=== PATIENT | male | born 1955 | race Caucasian/White ===

== ENCOUNTER 2024-03-17 04:07 | Observation (INO) | payer OTHER, SELFPAY ==
[2024-03-17] VITALS (7 sets, daily range): BP systolic 104–140; BP diastolic 48–110; PULSE 64–79; RESP 11–20; TEMP 36.4–36.8; O2SAT 95–100; BMI 15.2
--- NOTE | 2024-03-17 04:16 | ECG_ITS ---
SEE SCANNED COPY FOR CONFIRMED REPORT MTDD
[2024-03-17] MEDS: MORPHINE SULFATE (*CRX) 4 MG/ML INJ IV PUSH ×2 (04:54→09:08)
[2024-03-17] MEDS: ONDANSETRON INJ 4 MG/2 ML VIAL IV PUSH ×3 (04:54→09:08)
[2024-03-17] MEDS: SODIUM CHLORIDE 0.9% IV 1,000 ML 999 ML IV CONT (05:36)
--- NOTE | 2024-03-17 05:56 | ED.GENADULT ---
HPI - General Adult General Chief complaint: Unspecified Stated complaint: AMS Time Seen by Provider: 03/17/24 04:48 History of Present Illness HPI narrative: Patient is a 68-year-old male who presents the emergency department this evening complaining of pain all over. Patient is DNR/DNI due to metastatic renal cell carcinoma. Patient states that he was told 5 weeks ago that he only has 2 weeks left lip and was placed on hospice. Patient states that recently his pain medications were decreased and currently his home pain regimen is not controlling his pain. Patient also has a known left prosthetic hip infection which has failed antibiotic treatment and patient's IV antibiotics were stopped approximately 5 weeks ago. Patient commissary representative/family member who is present with the patient states that the patient was on hospice but was recently taken off hospice in order for him to be admitted into an independent living facility. They are currently trying to get him back into hospice. Patient and it family member do not want any further treatment, only to make the patient comfortable and control his pain. Related Data Allergies Allergy/AdvReac Type Severity Reaction Status Date / Time No Known Allergies Allergy Verified 03/17/24 04:18 Review of Systems Review of Systems: All systems are reviewed and are negative unless stated otherwise in the HPI. Exam Narrative: General: Alert, awake, afebrile, frail and cachectic. HEENT: PERRL, no rhinorrhea, no post nasal drip, oropharynx clear. Cardiovascular: Regular rate and rhythm, no murmurs, rubs or gallops, no peripheral edema. Respiratory: Clear to auscultation bilaterally, no tachypnea, no wheezing, no respiratory distress. Abdomen: Soft, nontender, nondistended, no rebound, no guarding, no peritoneal signs. Musculoskeletal: Small lesion along the anterior left hip draining pustular drainage. SKin: No rash or evidence of skin infection. Neurological: Alert and oriented to person, place, and time. Follows all commands. No focal deficits appreciated at this time. Course Vital Signs Vital signs: Vital Signs Temperature 98.2 F 03/17/24 04:11 Pulse Rate 78 03/17/24 04:11 Respiratory Rate 20 03/17/24 04:11 Blood Pressure 140/68 03/17/24 04:11 Pulse Oximetry 100 03/17/24 04:11 Oxygen Delivery Room Air 03/17/24 04:11 Temperature 98.2 F 03/17/24 04:11 Pulse Rate 64 03/17/24 06:16 Respiratory Rate 11 L 03/17/24 06:16 Blood Pressure 104/48 L 03/17/24 06:16 Pulse Oximetry 100 03/17/24 06:16 Oxygen Delivery Room Air 03/17/24 04:11 Medical Decision Making MDM Narrative Medical decision making narrative: The patient was evaluated by myself in the emergency department. History is obtained from patient who is an independent historian and physical exam was performed. External medical records were reviewed at this time. IV was established and pertinent tests were ordered. Patient was administered a 1 L IV fluid bolus with normal saline, 4 mg of IV morphine for pain and 4 mg of IV Zofran for nausea. Comorbidities impacting this visit include metastatic cancer and infected left prosthetic hip unresponsive to treatment. I have evaluated and discussed social determinants of health with the patient that could potentially impact subsequent diagnosis and treatment plans. On repeat assessment of the patient, reevaluation revealed that the patient is doing well and is in no acute distress. Patient symptoms have improved since he arrived to our emergency department. Repeat vital signs were all reviewed and noted to be stable. Differential diagnosis and treatment plan were discussed with the patient at bedside. Patient agrees with discussion and after shared medical decision making agrees with admission. All questions were answered to the patient's satisfaction. Patient will be admitted to our general medical floor under the care of Dr. Ghosh. Jordon
--- NOTE | 2024-03-17 07:17 | PM.IMHP ---
H&P: HPI History of Present Illness Date/Time: 03/17/24 07:17 Chief Complaint: pain all over, AMS Narrative: ED notes reviewed. Patient is a 68-year-old male admitted from emergency department for complaining of pain all over.? Patient is DNR/DNI due to metastatic renal cell carcinoma.? Patient states that he was placed on hospice about 5 weeks ago.? Patient states that recently his pain medications were decreased and currently his home pain regimen is not controlling his pain.? Patient also has a known left prosthetic hip infection which has failed antibiotic treatment and patient's IV antibiotics were stopped approximately 5 weeks ago.? In ED- Patient family reported that pt was recently taken off hospice in order for him to be admitted into an independent living facility.? They are currently trying to get him back into hospice.? Pt is DNR and doesnot want any escalation of care except hospice placement and pain management. 03/17- seen and examined. he just received morphine IV and zofran- so was comfortable. Voices no acute complains Review of Systems Cardiovascular: Cardiovascular: Denies chest pain and Denies diaphoresis Respiratory: Respiratory: Denies chest congestion and Denies cough Gastrointestinal: Gastrointestinal: Denies abdominal pain and Denies melena Genitourinary: Genitourinary: Denies hematuria Musculoskeletal: Musculoskeletal: Reports arthralgias and Reports stiffness Comments: pain all over Neurologic: Denies Abnormal speech present Psychiatric: Psychiatric: Denies anxiety [facility] Social History Social History Alcohol intake: unknown Substance use: unknown Substance use type: does not use Do You Feel Safe in your Home?: Yes Lack of Transportation: No Lack of Food: Never True Current Housing: I Have Housing Concerned About Future Housing: No Difficulty Paying Gas/Electric Bills: No Difficulty Paying for Meds: No Currently Unemployed: No Education: Don't Know Difficulty w/ Childcare or Family Care: No Spiritual care concerns: No Meds Home Medications and Allergies Home Medications Medication Instructions Recorded Confirmed Type ondansetron 4 mg disintegrating 4 mg PO Q4H 03/17/24 03/17/24 History tablet oxycodone 10 mg tablet 10 mg PO Q4H 03/17/24 03/17/24 History Allergies Allergy/AdvReac Type Severity Reaction Status Date / Time No Known Allergies Allergy Verified 03/17/24 04:18 Vital Signs Vital Signs - 24 hr 03/17/24 04:11 03/17/24 04:34 03/17/24 04:18 Temperature 98.2 F Pulse Rate 78 78 79 Respiratory Rate 20 13 Blood Pressure 140/68 138/64 Pulse Oximetry 100 100 Oxygen Delivery Room Air 03/17/24 05:16 03/17/24 05:58 03/17/24 06:16 Temperature Pulse Rate 76 67 64 Respiratory Rate 18 17 11 L Blood Pressure 126/110 H 114/58 L 104/48 L Pulse Oximetry 100 100 Oxygen Delivery Exam Const: General: comfortable Other: resting in bed Resp: Effort & Inspection: normal respiratory effort Auscultation: clear to auscultation bilaterally Cardio: Rate: regular rate Rhythm: regular rhythm Skin: Other: pale Extrem: General: normal to inspection Psych: Affect: normal affect Assessment and Plan Assessment and plan (1) Admission for hospice care: Code(s): Z51.5 - Encounter for palliative care Status: Acute (2) Adult failure to thrive: Code(s): R62.7 - Adult failure to thrive Status: Acute (3) Renal cell carcinoma: Code(s): C64.9 - Malignant neoplasm of unspecified kidney, except renal pelvis Status: Acute Plan Admitted to hospice care -consult in place - zofran/Morphine prn- awaiting hospice recommendations Quality VTE Prophylaxis VTE prophylaxis: mechanical ordered
--- NOTE | 2024-03-17 07:41 | ADMGEN ---
This patient, John Moya, was admitted to 2 Medical Room 244-. Patient/family oriented to hospital policies and general routines including ID bracelet, bed and alarms, visiting hours, pain management, procedures, bathroom and other care routines, personal items, smoking policy, room service/diet, and visiting hours. Information on how to activate the Rapid Response Team has been discussed. Patient/Family are encouraged to report perceived risks to care and to ask questions if they do not understand what they are told or what they should do.
[2024-03-17] MEDS: SODIUM CHLORIDE 0.9% IV 1,000 ML 100 ML IV CONT (09:11)
--- NOTE | 2024-03-17 11:13 | PC.NURSE ---
Per Dr. Knight with [facility], patient to be readmitted for hospice inpatient.
--- NOTE | 2024-03-18 14:47 | PM.DS ---
DS: Admitting Diagnosis Discharge Date 03/17/24 Admitting Diagnosis weakness, pain DS: Discharge Diagnosis Discharge Diagnosis (1) Admission for hospice care: Code(s): Z51.5 - Encounter for palliative care Status: Acute (2) Adult failure to thrive: Code(s): R62.7 - Adult failure to thrive Status: Acute (3) Renal cell carcinoma: Code(s): C64.9 - Malignant neoplasm of unspecified kidney, except renal pelvis Status: Acute Plan Final dx: renal cell cancer Admitted to hospice care -consult in place - zofran/Morphine prn- awaiting hospice recommendations DS: Summary Hospital Course Hospital Course: admitted to hospice care for renal cell cancer Status at Discharge Functional status at discharge: bed bound Overall status at discharge: patient is back to baseline Time Spent with Patient Time attestation: Total time spent providing and/or coordinating discharge services: Time spent: Less than 30 minutes Exam Const: General: comfortable Other: resting in bed Resp: Effort & Inspection: normal respiratory effort Auscultation: clear to auscultation bilaterally Cardio: Rate: regular rate Rhythm: regular rhythm Skin: Other: pale Neuro: Speech: No Abnormal speech present Extrem: General: normal to inspection Psych: Affect: normal affect DS: Data Data Completed and Pending Completed studies during hospitalization: none Pending studies at discharge: none Additional Comments Additional comments: pt is admitted to hospice care. Discharge Plan Discharge Consulting providers: Jamia Reid Discharging Clinician: Jamia Reid Anticipated Discharge Date/Time: 03/17/24 14:51 Patient Disposition: Hospice - Medical Facility Activity: as tolerated Diet: as tolerated Stand Alone Forms: General Discharge Information Discharge Medications: Continued oxycodone 10 mg Tablet 10 mg PO Q4H ondansetron [Zofran ODT] 4 mg Tablet,Disintegrating 4 mg PO Q4H Date of admission: 03/17/24 09:47 Primary Care Provider: UNKNOWN,DOCTOR Admitting Provider: Moises Ghosh Attending physician on admission: Moises Ghosh Condition: Stable Quality VTE Prophylaxis VTE prophylaxis: mechanical ordered
== END 2024-03-17 11:16 | disposition hospice, inpatient (51) ==
LOC: ANHED 05:09 → ANH2MED 06:48
PROVIDERS: Admitting Provider Internal Medicine; Emergency Provider Emergency Medicine; Visit Provider Internal Medicine
DX: Z51.5 Encounter for palliative care (principal); G89.3 Neoplasm related pain (acute) (chronic); C64.9 Malignant neoplasm of unspecified kidney, except renal pelvis; T84.52XD Infection and inflammatory reaction due to internal left hip prosthesis, subsequent encounter; Z66 Do not resuscitate; R62.7 Adult failure to thrive; Z68.1 Body mass index [BMI] 19.9 or less, adult; Y83.8 Other surgical procedures as the cause of abnormal reaction of the patient, or of later complication, without mention of misadventure at the time of the procedure
CPT/HCPCS: 93005; 96361; 96374; 96375; 96376; 99285; G0378; J2270; J2405; J7030

== ENCOUNTER 2024-03-17 11:23 | HOS | payer OTHER, MEDICARE, SELFPAY ==
[2024-03-17 11:37] VITALS: BMI 15.2
[2024-03-17] MEDS: HYDROmorphone HCL INJ (*CRX) 1 MG/ML SYR 2 MG IV PUSH ×4 (12:09→20:07)
[2024-03-17] MEDS: dexAMETHasone SOD PHOS INJ 4 MG/ML VIAL IV PUSH ×2 (12:10→20:06)
[2024-03-17] MEDS: HYDROmorphone HCL/PF (*CRX) 50 MG in SODIUM CHLORIDE 0.9% IV 95 ML IV CONT (12:10)
--- NOTE | 2024-03-17 12:46 | PC.NURSE ---
Patient requesting NO information to be given to either of his sons, Deejay or Martin.
[2024-03-17] MEDS: PROCHLORPERAZINE EDISYLATE 10 MG/2 ML VIAL IV PUSH (17:03)
--- NOTE | 2024-03-17 17:13 | PM.IMHP ---
H&P: HPI History of Present Illness Date/Time: 03/17/24 17:13 Chief Complaint: Uncontrolled pain Narrative: 68-year-old gentleman was diagnosed with renal cell cancer while evaluating left hip and thigh pain. This was October 2022. At diagnosis he already had metastases to the left femur. He underwent radiation therapy to the right kidney followed by right nephrectomy in February of 2023. He had hip replacement surgery due to increasing pain in September 2023. He was found to have postoperative infection and had a 2nd surgery on the left hip and October 2022. He completed about 6 weeks of IV antibiotic and oral antibiotics. He was living in his own home until recently. Until is hip surgery he was ambulatory. Since diagnosis of his cancer he has lost about 50 lb. Prior to his hip surgery he was ambulating with a walker. He was continent of bowel and bladder. Appetite was decreasing. Had some nausea that has worsened over time. Recently developed some difficulty with swallowing especially chew your grew E foods. About 5 weeks prior to admission he was referred for hospice services. However because he wanted to moved to an assisted living he had 2 revoke hospice services temporarily. After moving to assisted living his physician decreased his hydromorphone dose from 20 mg every 4 hours to 10 mg every 4 hours. Unfortunately his pain escalated over the last week or so and he ended up in the emergency department due to uncontrolled pain. At admission is pain was 10/10. After bolus of hydromorphone 2 mg and 1 milligram/hour drip his pain is now at 7/10. He does have chronic dry eyes and bilateral lower lid ectropion. He cannot close his eyes completely to sleep. He has deep aching constant pain in the left hip and thigh that is worsened by activity. He denied chest pain or shortness of breath. Admitted to weight loss and nausea and poor appetite. Denied abdominal pain. Denied change in urine or stool. Denied focal weakness or numbness or headaches. Denied vision changes. He did have blurred vision when using nocturnal ointment to prevent dry eyes. Review of Systems Review of Systems: All systems reviewed & are unremarkable except as noted in HPI and below PMFSH Past Medical History Medical History (Updated 03/17/24 @ 17:40 by Davy Knight MD) History of revision of total replacement of left hip joint 10/2023 Renal cell carcinoma 10/2022 Surgical History Surgical History (Updated 03/17/24 @ 17:40 by Davy Knight MD) History of nephrectomy, right 02/2023 History of total left hip arthroplasty 09/2023 Family History Family History (Updated 03/17/24 @ 17:41 by Davy Knight MD) Mother Renal cell cancer Father Congestive heart failure Social History Social History (Updated 03/17/24 @ 17:43 by Davy Knight MD) Social History: Single. Lived alone in his own home until 02/2024 move to assisted living in [place], [place]. Former social drinker. Quit smoking cigarettes in 1999. Retired from [employer]. Smoking status: Former smoker Tobacco type: cigarettes Alcohol intake: former Substance use: never Do You Feel Safe in your Home?: Yes Lack of Transportation: No Lack of Food: Never True Current Housing: I Have Housing Concerned About Future Housing: No Difficulty Paying Gas/Electric Bills: No Difficulty Paying for Meds: No Currently Unemployed: No Education: Don't Know Difficulty w/ Childcare or Family Care: No Living arrangements: assisted living Occupation/Education: retired Spiritual care concerns: No Meds Home Medications and Allergies Home Medications Medication Instructions Recorded Confirmed Type ondansetron 4 mg disintegrating 4 mg PO Q4H 03/17/24 03/17/24 History tablet oxycodone 10 mg tablet 10 mg PO Q4H 03/17/24 03/17/24 History Allergies Allergy/AdvReac Type Severity Reaction Status Date / Time No Known Allergies Allerg
[2024-03-17] MEDS: ARTIFICIAL TEARS OPHTH SOLN 15 ML BOTTLE EACH EYE (20:13)
[2024-03-17] MEDS: LORazepam INJ (*CRX) 2 MG/ML VIAL 1 MG IV PUSH (20:19)
[2024-03-18] MEDS: HYDROmorphone HCL INJ (*CRX) 1 MG/ML SYR 2 MG IV PUSH ×3 (07:58→20:08)
[2024-03-18] MEDS: dexAMETHasone SOD PHOS INJ 4 MG/ML VIAL IV PUSH ×2 (09:17→20:08)
--- NOTE | 2024-03-18 12:23 | PM.IMPN ---
Progress Note: A&P Assessment and Plan (1) Palliative care encounter: Code(s): Z51.5 - Encounter for palliative care Status: Acute Assessment and Plan: Meet inpatient hospice criteria due to requiring continuous IV hydromorphone for control of pain. 03/17/2024 discussed with Mr. Moya and he is in agreement with a plan to utilize IV medication to achieve adequate analgesia then transition to oral medications so that he may return to the assisted living facility. 03/17/2024 initial regimen of hydromorphone 1 milligram/hour continuously and 2 mg every 2 hours as needed as well as dexamethasone 4 mg IV every 12 hours. PRN palliative medications and eye patches for ectropion ordered. 03/18/2024 increased hydromorphone drip to 2 mg/hr. (2) Renal cell carcinoma: Code(s): C64.9 - Malignant neoplasm of unspecified kidney, except renal pelvis Status: Acute Subjective Date/time seen: 03/18/24 12:23 Interval history: Pain 6/10 today. Worse at night. Required 2 extra doses of hydromorphone thus far this AM. No BM yet. Review of Systems Review of Systems: All systems reviewed & are unremarkable except as noted in HPI and below Exam Narrative: Chronically ill-appearing elderly gentleman in no acute distress. Eyes with bilateral lower lid ectropion and erythema. Pupils equal round react to light. Extraocular movements intact. Sclerae nonicteric. Oral mucosa pink and moist. Neck without JVD thyromegaly or adenopathy. Chest with normal effort and clear to auscultation. Heart regular rate with normal S1 and S2 and no audible murmurs or gallops. Extremities without edema. Abdomen bowel sounds hypoactive soft no palpable tenderness masses or organomegaly. Musculoskeletal with diffuse muscle wasting but no gross deformities the visual inspection. Neurologic cranial nerves intact to visual inspection. Muscle tone within normal limits and symmetric bilaterally. Psychiatric alert and oriented to person place time and situation. Cooperative. Mood euthymic. Objective Data Intake/Output Intake/Output: Intake & Output 03/15/24 03/16/24 03/17/24 03/18/24 23:59 23:59 23:59 23:59 Intake Total 240 Balance 240 Meds/Results Medications: Active Medications Generic Name Dose Route Start Last Admin Trade Name Freq PRN Reason Stop Dose Admin Artificial Tears 1 - 2 drop 03/17/24 11:45 03/17/24 20:13 Artificial Tears Ophth Soln 15 Ml Bottle EACH EYE 2 drop QID PRN Administration Dry Eye(s) Bisacodyl 10 mg 03/17/24 11:45 Bisacodyl 10 Mg Suppository RECTAL DAILY PRN Constipation Dexamethasone Sodium Phosphate 4 mg 03/17/24 21:00 03/18/24 09:17 Dexamethasone Sod Phos Inj 4 Mg/Ml Vial IV PUSH 4 mg Q12HR SHADE Administration Glycopyrrolate 0.1 mg 03/17/24 11:44 Glycopyrrolate Inj (*Sp) 0.2 Mg/Ml Vial IV PUSH Q4HR PRN Secretions Hydromorphone HCl 2 mg 03/17/24 11:40 03/18/24 07:58 Hydromorphone Hcl Inj (*Crx) 1 Mg/Ml Syr IV PUSH 2 mg Q2H PRN Administration Pain/Dyspnea Hydromorphone HCl 50 mg/ 100 mls @ 2 mls/hr 03/17/24 12:00 03/17/24 12:10 Sodium Chloride IV CONT 1 mg/hr .Q24H SHADE 2 mls/hr Administration 1 MG/HR Lorazepam 1 mg 03/17/24 11:41 03/17/24 20:19 Lorazepam Inj (*Crx) 2 Mg/Ml Vial IV PUSH 1 mg Q4H PRN Administration Restlessness/Anxiety Prochlorperazine Edisylate 10 mg 03/17/24 11:45 03/17/24 17:03 Prochlorperazine Edisylate 10 Mg/2 Ml Vial IV PUSH 10 mg Q6H PRN Administration Nausea And Vomiting
[2024-03-18] MEDS: HYDROmorphone HCL/PF (*CRX) 50 MG in SODIUM CHLORIDE 0.9% IV 95 ML IV CONT (12:40)
[2024-03-18 14:05] VITALS: BP 115/61; PULSE 67; RESP 16; TEMP 36.6; O2SAT 100
[2024-03-18 20:00] VITALS: BP 128/79; PULSE 93; RESP 20; TEMP 36.3; O2SAT 98
[2024-03-18] MEDS: SENNOSIDES 8.6 MG TABLET 17.2 MG PO (20:08)
[2024-03-19] MEDS: HYDROmorphone HCL INJ (*CRX) 1 MG/ML SYR 2 MG IV PUSH ×3 (05:55→20:43)
[2024-03-19 08:37] VITALS: O2SAT 98
[2024-03-19] MEDS: dexAMETHasone SOD PHOS INJ 4 MG/ML VIAL IV PUSH ×2 (08:38→20:39)
--- NOTE | 2024-03-19 10:27 | PM.IMPN ---
Progress Note: A&P Assessment and Plan (1) Palliative care encounter: Code(s): Z51.5 - Encounter for palliative care Status: Acute Assessment and Plan: Meet inpatient hospice criteria due to requiring continuous IV hydromorphone for control of pain. 03/17/2024 discussed with Mr. Moya and he is in agreement with a plan to utilize IV medication to achieve adequate analgesia then transition to oral medications so that he may return to the assisted living facility. 03/17/2024 initial regimen of hydromorphone 1 milligram/hour continuously and 2 mg every 2 hours as needed as well as dexamethasone 4 mg IV every 12 hours. PRN palliative medications and eye patches for ectropion ordered. 03/18/2024 increased hydromorphone drip to 2 mg/hr. 03/19/2024 added scheduled acetaminophen 1000 mg tid. (2) Renal cell carcinoma: Code(s): C64.9 - Malignant neoplasm of unspecified kidney, except renal pelvis Status: Acute Subjective Date/time seen: 03/19/24 10:27 Interval history: Pain is not a 4/10. Except he still has drilling pain in left thigh that is severe near bedtime and 1st thing in the morning. He received bolus doses for that. Feels a little lightheaded on current medication. Willing to try a nonopioid analgesics as opposed to increasing his opioid dose. Bowels still have not moved. Tolerating diet. Review of Systems Review of Systems: All systems reviewed & are unremarkable except as noted in HPI and below Exam Narrative: Chronically ill-appearing elderly gentleman in no acute distress. Eyes with bilateral lower lid ectropion and erythema. Pupils equal round react to light. Extraocular movements intact. Sclerae nonicteric. Oral mucosa pink and moist. Neck without JVD thyromegaly or adenopathy. Chest with normal effort and clear to auscultation. Heart regular rate with normal S1 and S2 and no audible murmurs or gallops. Extremities without edema. Abdomen bowel sounds hypoactive soft no palpable tenderness masses or organomegaly. Musculoskeletal with diffuse muscle wasting but no gross deformities the visual inspection. Neurologic cranial nerves intact to visual inspection. Muscle tone within normal limits and symmetric bilaterally. Psychiatric alert and oriented to person place time and situation. Cooperative. Mood euthymic. Objective Data Vital Signs Vital Signs: Vital Signs - 24 hr 03/18/24 14:05 03/18/24 20:00 Temperature 97.8 F 97.3 F L Pulse Rate 67 93 Respiratory Rate 16 20 Blood Pressure 115/61 128/79 Pulse Oximetry 100 98 Intake/Output Intake/Output: Intake & Output 03/16/24 03/17/24 03/18/24 03/19/24 23:59 23:59 23:59 23:59 Intake Total 762 125 Output Total 1200 Balance 762 -1075 Meds/Results Medications: Active Medications Generic Name Dose Route Start Last Admin Trade Name Freq PRN Reason Stop Dose Admin Artificial Tears 1 - 2 drop 03/17/24 11:45 03/17/24 20:13 Artificial Tears Ophth Soln 15 Ml Bottle EACH EYE 2 drop QID PRN Administration Dry Eye(s) Bisacodyl 10 mg 03/17/24 11:45 Bisacodyl 10 Mg Suppository RECTAL DAILY PRN Constipation Dexamethasone Sodium Phosphate 4 mg 03/17/24 21:00 03/19/24 08:38 Dexamethasone Sod Phos Inj 4 Mg/Ml Vial IV PUSH 4 mg Q12HR SHADE Administration Glycopyrrolate 0.1 mg 03/17/24 11:44 Glycopyrrolate Inj (*Sp) 0.2 Mg/Ml Vial IV PUSH Q4HR PRN Secretions Hydromorphone HCl 2 mg 03/17/24 11:40 03/19/24 08:38 Hydromorphone Hcl Inj (*Crx) 1 Mg/Ml Syr IV PUSH 2 mg Q2H PRN Administration Pain/Dyspnea Hydromorphone HCl 50 mg/ 100 mls @ 4 mls/hr 03/17/24 12:00 03/18/24 12:40 Sodium Chloride IV CONT 2 mg/hr .Q24H SHADE 4 mls/hr Administration 2 MG/HR Lorazepam 1 mg 03/17/24 11:41 03/17/24 20:19 Lorazepam Inj (*Crx) 2 Mg/Ml Vial IV PUSH 1 mg Q4H PRN Administration Restlessness/Anxiety Prochlorperazine Edisyla
[2024-03-19] MEDS: HYDROmorphone HCL/PF (*CRX) 50 MG in SODIUM CHLORIDE 0.9% IV 95 ML IV CONT (11:22)
[2024-03-19] MEDS: ACETAMINOPHEN 500 MG TABLET 1000 MG PO ×2 (13:43→17:34)
[2024-03-19 13:52] VITALS: BP 111/54; PULSE 64; RESP 16; TEMP 36.6; O2SAT 100
[2024-03-19] MEDS: BISACODYL 10 MG SUPPOSITORY RECTAL (18:48)
--- NOTE | 2024-03-19 19:25 | PC.NURSE ---
This afternoon, patient requesting to become confidential status. Patient had not been confidential until this point. OK per patient for the 2 listed contacts to be aware of condition.
[2024-03-19 20:00] VITALS: BP 136/64; PULSE 64; RESP 18; TEMP 36.4; O2SAT 97
[2024-03-19] MEDS: SENNOSIDES 8.6 MG TABLET 17.2 MG PO (20:38)
[2024-03-20] MEDS: PROCHLORPERAZINE EDISYLATE 10 MG/2 ML VIAL IV PUSH (02:06)
[2024-03-20] MEDS: HYDROmorphone HCL INJ (*CRX) 1 MG/ML SYR 2 MG IV PUSH (02:32)
[2024-03-20] MEDS: ACETAMINOPHEN 500 MG TABLET 1000 MG PO ×3 (08:37→17:30)
[2024-03-20] MEDS: dexAMETHasone SOD PHOS INJ 4 MG/ML VIAL IV PUSH ×2 (08:38→20:54)
[2024-03-20 13:58] VITALS: BP 128/51; PULSE 74; RESP 14; TEMP 36.8; O2SAT 100
--- NOTE | 2024-03-20 14:57 | PM.IMPN ---
Progress Note: A&P Assessment and Plan (1) Palliative care encounter: Code(s): Z51.5 - Encounter for palliative care Status: Acute Assessment and Plan: Meet inpatient hospice criteria due to requiring continuous IV hydromorphone for control of pain. 03/17/2024 discussed with Mr. Moya and he is in agreement with a plan to utilize IV medication to achieve adequate analgesia then transition to oral medications so that he may return to the assisted living facility. 03/17/2024 initial regimen of hydromorphone 1 milligram/hour continuously and 2 mg every 2 hours as needed as well as dexamethasone 4 mg IV every 12 hours. PRN palliative medications and eye patches for ectropion ordered. 03/18/2024 increased hydromorphone drip to 2 mg/hr. 03/19/2024 added scheduled acetaminophen 1000 mg tid. 03/20/24 transitioned to po regimen (2) Renal cell carcinoma: Code(s): C64.9 - Malignant neoplasm of unspecified kidney, except renal pelvis Status: Acute Assessment and Plan: Metastatic to bone (3) Wound infection after surgery: Code(s): T81.49XA - Infection following a procedure, other surgical site, initial encounter Status: Acute Assessment and Plan: Left anterior hip wound start doxycycline 100 mg twice daily and obtain culture Subjective Date/time seen: 03/20/24 14:57 Interval history: Pain well controlled. Wound on left hip is draining purulent material again. Previously had staph infection treated with doxycycline long-term. Exam Narrative: Chronically ill-appearing elderly gentleman in no acute distress. Skin with purulent drainage from left anterior hip wound Eyes with bilateral lower lid ectropion and erythema. Pupils equal round react to light. Extraocular movements intact. Sclerae nonicteric. Oral mucosa pink and moist. Neck without JVD thyromegaly or adenopathy. Chest with normal effort and clear to auscultation. Heart regular rate with normal S1 and S2 and no audible murmurs or gallops. Extremities without edema. Abdomen bowel sounds hypoactive soft no palpable tenderness masses or organomegaly. Musculoskeletal with diffuse muscle wasting but no gross deformities the visual inspection. Neurologic cranial nerves intact to visual inspection. Muscle tone within normal limits and symmetric bilaterally. Psychiatric alert and oriented to person place time and situation. Cooperative. Mood euthymic. Objective Data Vital Signs Vital Signs: Vital Signs - 24 hr 03/19/24 20:00 03/20/24 08:36 03/20/24 13:58 Temperature 97.6 F 98.3 F Pulse Rate 64 74 Respiratory Rate 18 14 Blood Pressure 136/64 128/51 L Pulse Oximetry 97 100 Oxygen Delivery Room Air Intake/Output Intake/Output: Intake & Output 03/17/24 03/18/24 03/19/24 03/20/24 23:59 23:59 23:59 23:59 Intake Total 762 1415.8 360 Output Total 1200 1200 Balance 762 215.8 -840 Meds/Results Medications: Active Medications Generic Name Dose Route Start Last Admin Trade Name Freq PRN Reason Stop Dose Admin Acetaminophen 1,000 mg 03/19/24 13:00 03/20/24 12:50 Acetaminophen 500 Mg Tablet PO 1,000 mg TID SHADE Administration Artificial Tears 1 - 2 drop 03/17/24 11:45 03/17/24 20:13 Artificial Tears Ophth Soln 15 Ml Bottle EACH EYE 2 drop QID PRN Administration Dry Eye(s) Bisacodyl 10 mg 03/17/24 11:45 03/19/24 18:48 Bisacodyl 10 Mg Suppository RECTAL 10 mg DAILY PRN Administration Constipation Dexamethasone Sodium Phosphate 4 mg 03/17/24 21:00 03/20/24 08:38 Dexamethasone Sod Phos Inj 4 Mg/Ml Vial IV PUSH 4 mg Q12HR SHADE Administration Glycopyrrolate 0.1 mg 03/17/24 11:44 Glycopyrrolate Inj (*Sp) 0.2 Mg/Ml Vial IV PUSH Q4HR PRN Secretions Hydromorphone HCl 2 mg 03/17/24 11:40 03/20/24 02:32 Hydromorphone Hcl Inj (*Crx) 1 Mg/Ml Syr IV PUSH 2 mg Q2H PRN Administration Pain/Dyspnea Hydromorphone HCl
[2024-03-20] MEDS: MORPHINE SULFATE (*CRX) 100 MG TABCR PO ×2 (16:33→22:15)
--- NOTE | 2024-03-20 16:37 | PC.NURSE ---
Spoke to Pharmacist [place] regarding dosing of new PO medications.
[2024-03-20] MEDS: oxyCODONE HCL (*CRX) 5 MG TAB IR 30 MG PO ×2 (17:29→20:53)
[2024-03-20 19:57] VITALS: BP 154/73; PULSE 67; RESP 17; TEMP 36.6; O2SAT 96
[2024-03-20] MEDS: SENNOSIDES 8.6 MG TABLET 17.2 MG PO (20:53)
[2024-03-20] MEDS: DOXYCYCLINE HYCLATE 100 MG TABLET PO (20:53)
[2024-03-20 21:00] VITALS: PULSE 67; RESP 17; O2SAT 96
[2024-03-21 04:19] VITALS: BP 130/54; PULSE 67; RESP 18; TEMP 36.5; O2SAT 98
[2024-03-21] MEDS: oxyCODONE HCL (*CRX) 5 MG TAB IR 30 MG PO ×2 (05:35→08:24)
[2024-03-21] MEDS: MORPHINE SULFATE (*CRX) 100 MG TABCR PO (06:36)
[2024-03-21 08:00] VITALS: BP 157/80; PULSE 115; RESP 16; TEMP 36.6; O2SAT 100
[2024-03-21 08:18] VITALS: O2SAT 98
[2024-03-21] MEDS: ACETAMINOPHEN 500 MG TABLET 1000 MG PO (08:24)
[2024-03-21] MEDS: dexAMETHasone SOD PHOS INJ 4 MG/ML VIAL IV PUSH (08:25)
[2024-03-21] MEDS: DOXYCYCLINE HYCLATE 100 MG TABLET PO (10:29)
--- NOTE | 2024-03-21 10:47 | PM.DS ---
DS: Admitting Diagnosis Discharge Date 03/21/2024 Admitting Diagnosis Uncontrolled pain due to metastatic renal cell cancer. 68-year-old gentleman was admitted due to uncontrolled cancer pain as noted in the H&P. He was treated with IV hydromorphone and titrated to comfort. He was treated with 48 mg per 24 hours of IV hydromorphone. Based on his oral morphine mg equivalents he was transitioned to oral extended-release morphine and immediate release oxycodone with a proximally 25% reduction and morphine mg equivalents. With the addition of adjunctive acetaminophen he tolerated this well. He received IV dexamethasone during hospitalization. This was thought to be continued after discharge. He was able to ambulate with walker. Was tolerating his diet. He was treated for recurrence of his chronic left hip wound infection which really see with Staph aureus treated with doxycycline. Doxycycline was restarted. Culture was pending on the wound. DS: Discharge Diagnosis Discharge Diagnosis (1) Palliative care encounter: Code(s): Z51.5 - Encounter for palliative care Status: Acute Assessment and Plan: Meet inpatient hospice criteria due to requiring continuous IV hydromorphone for control of pain. 03/17/2024 discussed with Mr. Moya and he is in agreement with a plan to utilize IV medication to achieve adequate analgesia then transition to oral medications so that he may return to the assisted living facility. 03/17/2024 initial regimen of hydromorphone 1 milligram/hour continuously and 2 mg every 2 hours as needed as well as dexamethasone 4 mg IV every 12 hours. PRN palliative medications and eye patches for ectropion ordered. 03/18/2024 increased hydromorphone drip to 2 mg/hr. 03/19/2024 added scheduled acetaminophen 1000 mg tid. 03/20/24 transitioned to po regimen 03/21/24 discharge home on hospice DS: Summary Hospital Course Hospital Course: See description above Time Spent with Patient Time attestation: Total time spent providing and/or coordinating discharge services: Exam Narrative: Chronically ill-appearing elderly gentleman in no acute distress. Skin with purulent drainage from left anterior hip wound Eyes with bilateral lower lid ectropion and erythema. Pupils equal round react to light. Extraocular movements intact. Sclerae nonicteric. Oral mucosa pink and moist. Neck without JVD thyromegaly or adenopathy. Chest with normal effort and clear to auscultation. Heart regular rate with normal S1 and S2 and no audible murmurs or gallops. Extremities without edema. Abdomen bowel sounds hypoactive soft no palpable tenderness masses or organomegaly. Musculoskeletal with diffuse muscle wasting but no gross deformities the visual inspection. Neurologic cranial nerves intact to visual inspection. Muscle tone within normal limits and symmetric bilaterally. Psychiatric alert and oriented to person place time and situation. Cooperative. Mood euthymic. Discharge Plan Discharge Attending physician on discharge: Davy Knight Discharging Clinician: Davy Knight Patient Disposition: Hospice - Home Activity: no straining and no driving Diet: regular Stand Alone Forms: General Discharge Information Discharge Medications: New morphine 100 mg Tablet Extended Release 100 mg PO Q8HR Qty: 60 0RF oxycodone 5 mg Tablet 30 mg PO Q4HR Qty: 90 0RF sennosides [Senokot] 8.6 mg Tablet 17.2 mg PO HS Qty: 60 0RF acetaminophen 500 mg Tablet 1,000 mg PO TID Qty: 120 0RF Artificial Tears([id number]) 1-0.2-0.2 % Drops 1 - 2 drp EACH EYE QID PRN (Reason: Dry Eye(S)) Qty: 1 0RF bisacodyl 10 mg Suppository 10 mg RECTAL DAILY PRN (Reason: Constipation) Qty: 10 0RF doxycycline hyclate 100 mg Tablet 100 mg PO Q12HR Qty: 60 0RF prochlorperazine maleate 10 mg tablet 10 mg PO Q6H PRN (Reason: nausea and vomiting) Qty: 10 0RF Discontinued oxycodone 10 mg Tablet
--- NOTE | 2024-03-21 14:00 | PC.NURSE ---
multiple attempts to fax discharge med list to facility, call placed to [facility] and they state their fax machine must not be working, they state they will get the list from the patient's packet sent with him
== END 2024-03-21 12:15 | disposition hospice, home (50) | DRG 951 ==
PROVIDERS: Admitting Provider Internal Medicine; Visit Provider Internal Medicine
DX: Z51.5 Encounter for palliative care (principal); C64.9 Malignant neoplasm of unspecified kidney, except renal pelvis; C79.51 Secondary malignant neoplasm of bone; G89.3 Neoplasm related pain (acute) (chronic); M25.552 Pain in left hip; H02.102 Unspecified ectropion of right lower eyelid; H02.105 Unspecified ectropion of left lower eyelid; Z90.5 Acquired absence of kidney; Z92.3 Personal history of irradiation; Z96.642 Presence of left artificial hip joint; Z87.891 Personal history of nicotine dependence
CPT/HCPCS: 87070; 87077; 87186; 87205; A9270; J0780; J1100; J1170; J2060